=== PATIENT | male | born 1995 | race Caucasian/White ===

== ENCOUNTER → 2017-07-24 | Outpatient (CLI) | payer OTHER ==
--- NOTE | 2017-07-24 20:53 | DIAGNOSTIC IMAGING REPORT ---
R LOWER EXT JOINT WITHOUT CLINICAL HISTORY: 21 years-old Male with RIGHT KNEE PAIN,TORN MENISCUS. Acute anterior right knee pain with concern for torn meniscus COMPARISON: None available TECHNIQUE: Multiplanar, multisequence MRI of the right knee was performed without intravenous contrast. FINDINGS: MENISCI: There is increased PD signal involving the medial meniscal body, posterior junction and posterior horn nicely seen on images 18 through 20 of series 5 with extension to both the superior and inferior articular surfaces, nicely seen on image 18 of series 5 with horizontal undersurface component seen on image 18 of series 6. No evidence of displaced meniscal fragment or parameniscal cyst. The lateral meniscus is normal in position, morphology and signal. CRUCIATE LIGAMENTS: The anterior and posterior cruciate ligaments are normal in signal, morphology and course. COLLATERAL LIGAMENTS: The popliteus tendon, biceps femoris tendon, fibular collateral ligament and iliotibial band are intact. The superficial and deep components of the medial collateral ligament are intact. EXTENSOR MECHANISM: The quadriceps and patellar tendons are intact. The medial and lateral patellar retinacula are intact. KNEE JOINT: There is no large joint effusion. There is no focal cartilage or osteochondral abnormality. BONE MARROW: The bone marrow signal is age appropriate. No fracture, marrow edema, or marrow replacing process. SOFT TISSUES: Trace fluid within the deep prepatellar bursa. No Gill's cyst identified. IMPRESSION: 1. Complex tear of the medial meniscal body, posterior junction and posterior horn without definite displaced fragment or parameniscal cyst. 2. No focal bone marrow edema, chondral injury or acute ligamentous pathology identified. The above report was generated using voice recognition software. It may contain grammatical, syntax or spelling errors. Electronically signed by: Billy Cavanaugh M.D. 07/24/2017 8:52 PM Dictated Date/Time: 07/24/2017 8:40 PM
== END | disposition home or self-care (01) ==
LOC: C.MRI 19:45
PROVIDERS: ATTEND Orthopaedic Surgery Sports Medicine
DX: S83.241A Other tear of medial meniscus, current injury, right knee, initial encounter (principal); X58.XXXA Exposure to other specified factors, initial encounter; M25.561 Pain in right knee

== ENCOUNTER → 2017-08-09 | Day surgery (SDC) | payer OTHER ==
[2017-08-01 10:04] VITALS: Ht 185.4 cm; Wt 84.1 kg
[~2017-08-09] VITALS: Ht 185.4 cm; Wt 84.1 kg
[~2017-08-09] MED LIST: ATROPINE SULFATE 0.1 MG/ML 5ML SYR IV PRN; BUPIVACAINE/EPINEPHRINE 0.5% MPF 1:200,000 30 ML VIAL ONE; CEFAZOLIN 2000MG IV PUSH 15 ML IV SCH; DEXAMETHASONE SOD INJ 4 MG/ML VIAL ONE; EpHEDrine SULFATE INJ 50 MG/ML AMP IV PRN; EpINEphrine HCL INJ 1 MG/ML 1ML SYRINGE ONE; EpINEphrine INJ 1MG/ML AMP 1 MG/ML AMP ONE; FENTANYL CITRATE INJ 50 MCG/1 ML 2 ML VIAL ONE; HYDROmorphone INJ 0.5 MG/0.5 ML SYR IV PRN; KETOROLAC TROMETHAMINE 30 MG/ML VIAL ONE; LACTATED RINGER'S 1000ML 1,000 ML IV SCH; LIDOCAINE HCL 1% 20 ML VIAL ONE; LIDOCAINE HCL 2% 2 ML VIAL (20MG/ML) ONE; MIDAZOLAM HCL 1 MG/ML 2ML VIAL ONE; MoRPHine SULFATE 2 MG/ML CARP IV PRN; MoRPHine SULFATE 4 MG/ML 1 ML CARP\\VIAL IV PRN; ONDANSETRON INJ 2 MG/ML 2 ML VIAL IV PRN; ONDANSETRON INJ 2 MG/ML 2 ML VIAL ONE; OXYCODONE/ACETAMINOPHEN 5-325 TAB PO PRN; PHENYLEPHRINE 100MCG/ML 5ML SYR IV PRN; PROMETHAZINE HCL INJ 12.5 MG in SODIUM CHLORIDE 0.9% 50ML 50 ML IV PRN; PROPOFOL IV EMULSION 10 MG/ML 20 ML VIAL IV ONE
--- NOTE | 2017-08-09 10:41 | History & Physical Bridge - SC ---
H&P Re-Evaluation Bridge Note: I have examined the patient, reviewed the History & Physical and in the interval since the performance of the History & Physical I have noted the following changes of clinical significance: No changes noted
--- NOTE | 2017-08-09 12:57 | [facility] Post Operative Brief Note ---
Immediate Operative Summary Operative Date Aug 09, 2017. Pre-Operative Diagnosis Right Knee Medial Meniscus Tear Post-Operative Diagnosis Same + loose bodies Procedure(s) Performed 1) Right Knee Arthroscopy Medial Meniscus Repair. 2) Loose Body Removal. 3) Exam Under Anesthesia Surgeon Dr. Cooper Electrical Designer Drafter Surgeon(s) Dr. Khanna (Fellow) Estimated Blood Loss 4 cc Findings Consistent with Post-Op Diagnosis Fluids (cc crystalloids) 1100 Specimens None Drains None Anesthesia Type General Complication(s) none Disposition Disposition: Recovery Room / PACU (Stable)
--- NOTE | 2017-08-09 12:59 | Discharge Instructions-SurgCtr ---
Discharge Instructions Date of Service Aug 09, 2017. Visit Reason for Visit: Right Knee Medial Meniscus Tear Discharge Discharge Diagnosis / Problem: Right Knee Medial Meniscus Repair Discharge Goals Goal(s): Decrease discomfort, Improve function, Increase independence Activity Recommendations Activity Limitations: per Instructions/Follow-up section May Resume Sexual Activity: when tolerated Shower/Bathe: may shower/bathe in 3 days Driving or Machine Use: Not while on Narcotics or in brace Weightbearing Status: Right non-weightbearing Anesthesia . Post Anesthesia Instructions: If you have had General Anesthesia or IV Sedation: * Do not drive today. * Resume driving when surgeon permits. * Do not make important decisions or sign legal documents today. * Call surgeon for: 1. Temperature elevations greater than 101 degrees F. 2. Uncontrollable pain. 3. Excessive bleeding. 4. Persistent nausea and vomiting. 5. Medication intolerance (nausea, vomiting or rash). * For nausea and vomiting use only clear liquids such as: tea, soda, bouillon until nausea subsides, then gradually increase diet as tolerated. * If you have any concerns or questions, call your surgeon's office. If physician is unavailable and it is an emergency, call 911 or go to the nearest emergency room. . Instructions / Follow-Up Instructions / Follow-Up With [facility] in [address] Cooper in Training room 10-15 days. Diet Recommendations Home Diet: resume previous diet Procedures Procedures Performed: 1) Right Knee Arthroscopy Medial Meniscus Repair. 2) Loose Body Removal. 3) Exam Under Anesthesia Pending Studies Studies pending at discharge: no School Instructions Return To School: time frame (Within 1 week) Medical Emergencies . Who to Call and When: Medical Emergencies: If at any time you feel your situation is an emergency, please call 911 immediately. . Non-Emergent Contact Non-Emergency issues call your: Surgeon Call Non-Emergent contact if: temperature is above 101.5, your pain is not controlled, wound has increased drainage, wound has increased redness . . "Provider Documentation" section prepared by Rodrigo Cooper. .
--- NOTE | 2017-08-09 13:00 | [facility] Operative Report ---
Operative Report Operative Date Aug 09, 2017. Pre-Operative Diagnosis Right Knee Medial Meniscus Tear Post-Operative Diagnosis Same + loose bodies Procedure(s) Performed 1) Right Knee Arthroscopy Medial Meniscus Repair. 2) Loose Body Removal. 3) Exam Under Anesthesia Surgeon Dr. Cooper Porcelain Turner Surgeon(s) Dr. Khanna (Fellow) Estimated Blood Loss 4 cc Findings The right knee was examined under anesthesia. Range of motion was 0-135. Ligamentous examination exhibited: stable Zeus, posterior drawer, varus and valgus stress at 0 & 30 degrees. ARTHROSCOPIC FINDINGS: There were many small loose bodies. 1) PATELLOFEMORAL JOINT: The articular cartilage of the Patella and Trochlea were intact. 2) GUTTERS: No loose bodies. 3) MEDIAL COMPARTMENT: The articular cartilage of the Tibia was intact. The articular cartilage of the femur was intact for the most part, there is a small bubbling of the articular cartilage, Outerbridge type I change, roughly 3 x 3 mm at 80 of flexion. The medial meniscus was torn posteriorly in the red white zone. The normal hoop stresses were lost allowing exposure of the medial and anterior tibial articular cartilage and anteriorly to the transition where there is no cartilage. 4) ACL/PCL: They were both visualized and probed to be intact. 5) LATERAL COMPARTMENT: The lateral compartment was then entered in a figure-of- four position. The femoral and tibial articular cartilage was normal. The lateral meniscus was normal. 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 I recommended that a right knee arthroscopy be performed with meniscus repair vs debridement, possible chondroplasty versus microfracture. The patient understands the risks of surgery, which include but not limited to: bleeding, infection, re-operation, damage to nerves and arteries , continued knee pain, progression of OA, DVT, and a 2-5% risk of becoming worse after surgery. The patient understands all of these instructions and explanations, all of his questions have been satisfactorily addressed and the patient has elected to proceed. Informed consent was signed. Description of Procedure IMPLANTS: Meniscal Cinch 2 (Arthrex). PROCEDURE: The patient was taken to the Operating Room and placed in the supine position after general anesthetic was administered. My initials and a multidisciplinary time-out were used to identify the right leg as the correct operative limb. Prior to the incision, 2 grams of intravenous Ancef was given. The right knee was then injected with 20cc of a 50:50 mix of 1% Lidocaine plain and 0.5% Bupivacaine with epinephrine in a sterile fashion using the superolateral portal. The right leg was then prepped and draped in a standard sterile fashion. The anterolateral, anteromedial, and trans-patellar tendon portals were injected with the 50:50 mixture noted above, for a total of 3 cc, in the standard fashion. An anterolateral arthroscopic portal was established with an 11-blade. Next, the arthroscope was introduced into the knee. A diagnostic arthroscopy commenced and both the anteromedial and trans-patellar tendon portals were established under direct visualization using a spinal needle followed by an 11 blade in the standard fashion. The above findings were observed during the diagnostic arthroscopy. The loose body and small debris were removed as they were encounter with mechanical shaver and through the trocar. The medial meniscus tear was evaluated and found to be repairable and the frayed ends of the longitudinal tear were debrided with mechanical shaver. The capsule was also prepared with mechanical shaver and mace rasp. The arthroscope had to be switched into the anteromedial portal for visualization and the trans-patellar tendon portal was created to introduce a meniscal cinch anchor more posteriorly at a better angle. It was decided to place a second anchor more towards the apex and the anterolateral portal was used to introduce the meniscal cinch anchor. Both were placed in the standard fashion. The meniscus was then probed and found to be stable. The hoop stresses were re-created and the meniscus appeared to be in an anatomic position overlying the tibial plateau. The knee was copiously irrigated. The arthroscopic instruments were then removed. The portals were closed with 3-0 Prolene in a standard fashion. The wound was dressed with Xeroform gauze, sterile gauze, ABDs, sterile Webril, and a foot to thigh Romeo bandage. The patient was then transferred to the Recovery Room in stable condition. The sponge and needle counts were correct. Post-op Instructions: The patient will be NWB for 2 weeks and then weightbearing as tolerated with the brace locked in extension. The patient may remove the operative dressing on Post-Op Day #2 and apply Band-Aids to the wounds. The patient may shower in 72 hours and is to wear the MARGARITA for 2 weeks on the operative limb. The patient is to use the pain medicine as needed and take the ASA for 2 weeks. The patient was also given a handout for home quad strengthening and seated self- assisted ROM exercises, which they may begin tomorrow. His maximum flexion will be 90 for the first 3 weeks. The patient was given a prescription for PT and is scheduled for an appointment later this week. The patient is to follow up with me in 10-15 days. I attest to the content of the Intraoperative Record and any orders documented therein. Any exceptions are noted below.
[2017-08-09] MEDS: FENTANYL CITRATE INJ 50 MCG/1 ML 2 ML VIAL IV PRN ×3 (13:42→14:05)
--- NOTE | 2017-08-09 14:03 | Anesthesia Progress Nt - [facility] ---
Anesthesia Post Op Note Date & Time Aug 09, 2017 at 14:03 Vital Signs Pain Intensity: 5.0 Vital Signs Past 12 Hours Date Time Temp Pulse Resp B/P (MAP) Pulse Ox O2 Delivery O2 Flow Rate FiO2 08/09/17 13:56 78 14 08/09/17 13:56 76 14 119/60 99 08/09/17 13:51 51 16 118/75 100 08/09/17 13:51 56 16 08/09/17 13:46 52 16 08/09/17 13:46 51 16 131/68 100 08/09/17 13:41 56 15 123/69 100 08/09/17 13:41 52 15 08/09/17 13:36 63 14 08/09/17 13:36 58 14 142/69 100 08/09/17 13:31 78 20 131/67 100 08/09/17 13:31 77 20 08/09/17 13:26 50 18 107/66 100 08/09/17 13:26 49 18 08/09/17 13:21 56 14 08/09/17 13:21 55 14 120/75 100 08/09/17 13:17 126/73 08/09/17 13:16 36.6 62 14 126/73 100 Mask 6 08/09/17 09:00 36.6 61 16 131/74 (93) 96 Room Air Notes Mental Status: alert / awake / arousable, participated in evaluation Pt Amnestic to Procedure: Yes Nausea / Vomiting: adequately controlled Pain: adequately controlled Airway Patency, RR, SpO2: stable & adequate BP & HR: stable & adequate Hydration State: stable & adequate Anesthetic Complications: no major complications apparent
[2017-08-09 14:50] VITALS: BP 116/84; PULSE 72; O2SAT 96
== END | disposition home or self-care (01) ==
LOC: X.SURG 08:43
PROVIDERS: ATTEND Orthopaedic Surgery Sports Medicine
DX: M23.231 Derangement of other medial meniscus due to old tear or injury, right knee (principal); M23.41 Loose body in knee, right knee